=== PATIENT | female | born 1940 | race Caucasian/White ===

== ENCOUNTER 2018-02-13 22:22 | Emergency (ER) | payer MEDICARE ==
[~2018-02-13 22:22] MED LIST: GASTROGRAFIN 30 ML BOT ONE
--- NOTE | 2018-02-14 08:34 | RAD ---
ABDOMEN 1 VIEW: Date: 02/13/18 HISTORY: 77-year-old female with history of percutaneous gastrostomy tube placement evaluation. FINDINGS: Gastrostomy tube is in place within the stomach. Contrast media has been injected through the tube an d extends into the stomach. No evidence of extravasation. Very extensive solid fecal material burden throughout the colon, including a markedly dilated rectum, evidence of significant obstipation. IVC f ilter in place. IMPRESSION: Percutaneous gastrostomy tube in satisfactory location. Extensive solid fecal material with markedly dilated rectum, evidence for obstipation. POS: OFF
--- NOTE | 2018-02-14 08:43 | RAD ---
UPRIGHT PORTABLE CHEST 1 VIEW: HISTORY: A 77-year-old female with a history of cough. COMPARISON: 02/14/17. FINDINGS: Heart size is normal. Atherosclerosis of the aorta. No confluent pneumonia, overt edema, or pleural effusion. IMPRESSION: No active intrathoracic disease. Atherosclerosis of the aorta with some ectasia. POS: OFF
== END 2018-02-14 00:42 | disposition home or self-care (01) ==
LOC: ERS 22:22
DX: K94.29 Other complications of gastrostomy (principal); R05 Cough; I48.91 Unspecified atrial fibrillation; I10 Essential (primary) hypertension; Z79.899 Other long term (current) drug therapy; Y83.3 Surgical operation with formation of external stoma as the cause of abnormal reaction of the patient, or of later complication, without mention of misadventure at the time of the procedure
CPT/HCPCS: 71045; 74018; B4087